=== PATIENT | female | born 1985 | race Caucasian/White ===

== ENCOUNTER 2019-02-19 19:17 | Emergency (ER) | payer OTHER ==
[2019-02-19] MEDS: DEXAMETHASONE 10 MG/ML 1 ML INJ IM (20:05)
== END 2019-02-19 20:17 | disposition home or self-care (01) ==
LOC: FTE 19:17
DX: S49.91XA Unspecified injury of right shoulder and upper arm, initial encounter (principal); M79.2 Neuralgia and neuritis, unspecified; W22.8XXA Striking against or struck by other objects, initial encounter; Y92.9 Unspecified place or not applicable
CPT/HCPCS: 96372; 99284-25